=== PATIENT | male | born 1990 | race Two or more races ===

== ENCOUNTER 2022-11-30 11:01 | Emergency (ER) | payer OTHER ==
[~2022-11-30] VITALS: Ht 182.9 cm; Wt 91.0 kg
[2022-11-30 11:05] VITALS: BP 173/96
== END 2022-11-30 13:13 | disposition home or self-care (01) ==
LOC: ER 11:18
DX: F14.10 Cocaine abuse, uncomplicated (principal); F41.9 Anxiety disorder, unspecified; Z88.0 Allergy status to penicillin
CPT/HCPCS: 93005; 99283